=== PATIENT | female | born 1965 | race Hispanic/Latino ===

== ENCOUNTER 2017-09-08 09:50 | Emergency (ER) | payer MEDICARE ==
[~2017-09-08 09:50] MED LIST: CARV12.511 PO; DICY20TA11 PO; LOSA100T29 PO; PANT40TA PO; QUET200T58 PO; TRAZ-187 PO; VENL-63 PO
[2017-09-08] MEDS ORDERED: DICYCLOMINE HCL 20 MG TAB ONE (10:45)
[2017-09-08 10:54] LABS: BASOPHILS % (AUTO) 0.5 % (0.0-5.0); EOSINOPHILS % (AUTO) 1.7 % (0.0-8.0); HEMATOCRIT 39.8 % (36-48); LYMPHOCYTES % (AUTO) 29.6 % (21.0-51.0); MEAN CORPUSCULAR HEMOGLOBIN 30.7 pg (27.0-33.0); MEAN CORPUSCULAR HGB CONC 33.6 g/dL (32.0-36.0); MEAN CORPUSCULAR VOLUME 91.3 fL (79-99); MONOCYTES % (AUTO) 8.5 % (3.0-13.0); NEUTROPHILS % (AUTO) 59.7 % (40.0-77.0); PLATELET COUNT (AUTO) 177 K/uL (130-400); RED BLOOD CELL COUNT(AUTO) 4.36 MIL/uL (4.00-5.50); RED CELL DISTRIBUTION WIDTH 13.2 % (11.0-15.5); WHITE BLOOD COUNT (AUTO) 6.4 K/uL (4.8-10.8)
[2017-09-08] MEDS ORDERED: BENZONATATE 100 MG CAPSULE PO ONE (11:12)
[2017-09-08 11:20] LABS: AMYLASE 62 U/L (25-115); LIPASE 117 U/L (114-286)
[2017-09-08 11:47] LABS: APPEARANCE,URINE Clear (CLEAR); BILIRUBIN,URINE Negative (NEGATIVE); COLOR,URINE Yellow (YELLOW); GLUCOSE, URINE (UA) Negative (NEGATIVE); KETONES,URINE Negative (NEGATIVE); LEUKOCYTE ESTERASE ,URINE Negative (NEGATIVE); NITRATE,URINE Negative (NEGATIVE); OCCULT BLOOD,URINE Negative (NEGATIVE); PH,URINE 6.5 (5.0-8.0); PROTEIN,URINE Negative (NEGATIVE)
[2017-09-08] MEDS ORDERED: KETOROLAC TROMETHAMINE 15MG/ML ONE (12:08)
[2017-09-08 12:16] LABS: CREATININE 0.9 mg/dL (0.5-1.5); POTASSIUM 4.5 mmol/L (3.5-5.1)
[2017-09-08 12:20] LABS: ALBUMIN 3.2 g/dL (3.5-5.0); BILIRUBIN,TOTAL 0.2 mg/dL (0.2-1.0); TOTAL PROTEIN, SERUM 7.4 g/dL (6.0-8.3)
== END 2017-09-08 12:40 | disposition home or self-care (01) ==
LOC: EDH 09:50
DX: R10.9 Unspecified abdominal pain (principal); K59.00 Constipation, unspecified; K62.5 Hemorrhage of anus and rectum; M54.5 Low back pain; G89.29 Other chronic pain; M06.9 Rheumatoid arthritis, unspecified; R94.5 Abnormal results of liver function studies; F31.9 Bipolar disorder, unspecified; I10 Essential (primary) hypertension; Z98.890 Other specified postprocedural states; Z72.0 Tobacco use
CPT/HCPCS: 36415; 74018; 80053; 81003; 82150; 82550; 83690; 84484; 85025; 96374; 99285; J1885

== ENCOUNTER 2017-11-11 22:22 | Emergency (ER) | payer MEDICARE ==
[2017-11-11] MEDS ORDERED: LIDOCAINE HCL 2% VISCOUS 15 ML UDCUP ONE (23:07)
[2017-11-11] MEDS ORDERED: SUCRALFATE 1 GM TABLET ONE (23:08)
[2017-11-11] MEDS ORDERED: HYDROCORTISONE 25 MG SUPPOSITORY PR ONE (23:09)
== END 2017-11-12 01:09 | disposition home or self-care (01) ==
LOC: EDH 22:22
DX: K62.5 Hemorrhage of anus and rectum (principal); K21.0 Gastro-esophageal reflux disease with esophagitis; I10 Essential (primary) hypertension; F31.9 Bipolar disorder, unspecified; M54.9 Dorsalgia, unspecified; G89.29 Other chronic pain; Z72.0 Tobacco use

== ENCOUNTER 2018-02-04 10:20 | Emergency (ER) | payer MEDICARE ==
[~2018-02-04 10:20] MED LIST changes: +LOSA100T20 PO; -LOSA100T29 PO
[2018-02-04] MEDS ORDERED: ONDANSETRON HCL 4 MG/2 ML VIAL ONE ×2 (10:35→12:24)
[2018-02-04 10:58] LABS: BASOPHILS % (AUTO) 0.4 % (0.0-5.0); EOSINOPHILS % (AUTO) 1.9 % (0.0-8.0); HEMATOCRIT 35.1 % (36-48); MEAN CORPUSCULAR HEMOGLOBIN 31.7 pg (27.0-33.0); MEAN CORPUSCULAR HGB CONC 33.8 g/dL (32.0-36.0); MEAN CORPUSCULAR VOLUME 93.6 fL (79-99); MONOCYTES % (AUTO) 5.6 % (3.0-13.0); NEUTROPHILS % (AUTO) 59.1 % (40.0-77.0); PLATELET COUNT (AUTO) 182 K/uL (130-400); RED BLOOD CELL COUNT(AUTO) 3.75 MIL/uL (4.00-5.50); WHITE BLOOD COUNT (AUTO) 11.7 K/uL (4.8-10.8)
[2018-02-04 11:06] LABS: CREATININE 1.1 mg/dL (0.5-1.5); POTASSIUM 3.5 mmol/L (3.5-5.1)
[2018-02-04 11:11] LABS: ALBUMIN 3.4 g/dL (3.5-5.0); BILIRUBIN,TOTAL 0.7 mg/dL (0.2-1.0); TOTAL PROTEIN, SERUM 7.7 g/dL (6.0-8.3)
[2018-02-04] MEDS ORDERED: ACETAMINOPHEN-CODEINE 300/30MG TAB ONE (11:16)
[2018-02-04] MEDS ORDERED: PROMETHAZINE HCL 25 MG/ML 1ML AMPULE IM ONE (11:19)
[2018-02-04 11:44] LABS: APPEARANCE,URINE Turbid (CLEAR); BILIRUBIN,URINE Moderate (NEGATIVE); COLOR,URINE Dark Yellow (YELLOW); GLUCOSE, URINE (UA) Negative (NEGATIVE); KETONES,URINE Trace mg/dL (NEGATIVE); LEUKOCYTE ESTERASE ,URINE Small (NEGATIVE); NITRATE,URINE Positive (NEGATIVE); OCCULT BLOOD,URINE Negative (NEGATIVE); PH,URINE 5.5 (5.0-8.0); PROTEIN,URINE POS 1+ (NEGATIVE)
[2018-02-04 11:58] LABS: BACTERIA,URINE Few /HPF (None Seen); MUCUS,URINE Moderate LPF (None Seen); RBC,URINE 0-1 /HPF (0-1); SQUAMOUS EPITHELIAL CELL,UR Moderate /HPF (0-2)
[2018-02-04 11:59] LABS: CALCIUM OXALATE CRYSTALS,UR Moderate /LPF (None Seen)
[2018-02-04] MEDS ORDERED: CEFTRIAXONE SODIUM 1 GM ONE (12:24)
[2018-02-04] MEDS ORDERED: SODIUM CHLORIDE 0.9% 200 ML IV ONE (12:25)
== END 2018-02-04 13:52 | disposition home or self-care (01) ==
LOC: EDH 10:20
DX: A09 Infectious gastroenteritis and colitis, unspecified (principal); N39.0 Urinary tract infection, site not specified; E86.9 Volume depletion, unspecified; F41.9 Anxiety disorder, unspecified; F31.9 Bipolar disorder, unspecified; I10 Essential (primary) hypertension; M06.9 Rheumatoid arthritis, unspecified; Z72.0 Tobacco use
CPT/HCPCS: 36415; 71046; 80053; 81001; 85025; 87804 ×2; 96361; 96365; 96372; 96374; 96375; 99285; J0696; J2405 ×2; J2550

== ENCOUNTER 2018-02-24 12:31 | Emergency (ER) | payer MEDICARE ==
[2018-02-24] MEDS ORDERED: SODIUM CHLORIDE 0.9% 1000ML 1,000 ML IV ONE (12:57)
[2018-02-24] MEDS ORDERED: ONDANSETRON HCL 4 MG/2 ML VIAL ONE (12:57)
[2018-02-24] MEDS ORDERED: KETOROLAC TROMETHAMINE 30MG/ML ONE (12:57)
[2018-02-24 13:14] LABS: BASOPHILS % (AUTO) 0.3 % (0.0-5.0); EOSINOPHILS % (AUTO) 1.8 % (0.0-8.0); HEMATOCRIT 35.9 % (36-48); LYMPHOCYTES % (AUTO) 30.4 % (21.0-51.0); MEAN CORPUSCULAR HEMOGLOBIN 32.1 pg (27.0-33.0); MEAN CORPUSCULAR HGB CONC 33.8 g/dL (32.0-36.0); MEAN CORPUSCULAR VOLUME 95.1 fL (79-99); MONOCYTES % (AUTO) 9.4 % (3.0-13.0); NEUTROPHILS % (AUTO) 58.1 % (40.0-77.0); PLATELET COUNT (AUTO) 209 K/uL (130-400); RED BLOOD CELL COUNT(AUTO) 3.77 MIL/uL (4.00-5.50); WHITE BLOOD COUNT (AUTO) 7.9 K/uL (4.8-10.8)
[2018-02-24 13:22] LABS: CREATININE 0.9 mg/dL (0.5-1.5); POTASSIUM 4.7 mmol/L (3.5-5.1)
[2018-02-24 13:28] LABS: ALBUMIN 3.2 g/dL (3.5-5.0); BILIRUBIN,DIRECT 0.1 mg/dL (0.0-0.3); BILIRUBIN,TOTAL 0.4 mg/dL (0.2-1.0); TOTAL PROTEIN, SERUM 7.7 g/dL (6.0-8.3)
[2018-02-24 15:59] LABS: APPEARANCE,URINE Clear (CLEAR); BILIRUBIN,URINE Negative (NEGATIVE); COLOR,URINE Dark Yellow (YELLOW); GLUCOSE, URINE (UA) Negative (NEGATIVE); KETONES,URINE Trace mg/dL (NEGATIVE); LEUKOCYTE ESTERASE ,URINE Trace (NEGATIVE); NITRATE,URINE Negative (NEGATIVE); OCCULT BLOOD,URINE Negative (NEGATIVE); PH,URINE 5.5 (5.0-8.0); PROTEIN,URINE Negative (NEGATIVE)
[2018-02-24 16:11] LABS: MUCUS,URINE Many LPF (None Seen)
[2018-02-24 16:12] LABS: BACTERIA,URINE Few /HPF (None Seen); RBC,URINE 0-1 /HPF (0-1); SQUAMOUS EPITHELIAL CELL,UR 30-50 /HPF (0-2)
[2018-02-24 20:17] LABS: AMPHET/METH SCREEN,URINE NEGATIVE (NEGATIVE); BARBITURATE SCREEN, URINE NEGATIVE (NEGATIVE); BENZODIAZEPINES SCREEN,URINE NEGATIVE (NEGATIVE); CANNABINOID SCREEN,URINE POSITIVE (NEGATIVE); COCAINE SCREEN,URINE POSITIVE (NEGATIVE); OPIATE SCREEN,URINE NEGATIVE (NEGATIVE); PHENCYCLIDINE SCREEN,URINE NEGATIVE (NEGATIVE)
== END 2018-02-24 16:48 | disposition home or self-care (01) ==
LOC: EDH 12:31
DX: R10.31 Right lower quadrant pain (principal); Z72.0 Tobacco use
CPT/HCPCS: 36415; 74176; 80048; 80076; 80305; 81001; 83690; 85025; 96374; 96375; 99285; J1885; J2405; J7030

== ENCOUNTER 2018-06-11 13:25 | Emergency (ER) | payer MEDICARE ==
[~2018-06-11 13:25] MED LIST changes: -LOSA100T20 PO; +LOSA100T58 PO
[2018-06-11] MEDS ORDERED: METHYLPREDNISOLONE SOD SUCC 125MG/2ML VIAL ONE (14:47)
[2018-06-11] MEDS ORDERED: ONDANSETRON HCL 4 MG/2 ML VIAL ONE (14:47)
[2018-06-11] MEDS ORDERED: IPRATROPIUM/ALBUTEROL SULFATE 3 ML SOLUTION IH ONE (15:04)
[2018-06-11 15:05] LABS: BASOPHILS % (AUTO) 0.7 % (0.0-5.0); EOSINOPHILS % (AUTO) 1.9 % (0.0-8.0); HEMATOCRIT 37.3 % (36-48); LYMPHOCYTES % (AUTO) 19.4 % (21.0-51.0); MEAN CORPUSCULAR HEMOGLOBIN 29.6 pg (27.0-33.0); MEAN CORPUSCULAR HGB CONC 33.4 g/dL (32.0-36.0); MEAN CORPUSCULAR VOLUME 88.7 fL (79-99); MONOCYTES % (AUTO) 10.8 % (3.0-13.0); NEUTROPHILS % (AUTO) 67.2 % (40.0-77.0); PLATELET COUNT (AUTO) 186 K/uL (130-400); RED BLOOD CELL COUNT(AUTO) 4.21 MIL/uL (4.00-5.50); RED CELL DISTRIBUTION WIDTH 13.4 % (11.0-15.5); WHITE BLOOD COUNT (AUTO) 7.8 K/uL (4.8-10.8)
[2018-06-11 15:08] LABS: APPEARANCE,URINE Clear (CLEAR); BILIRUBIN,URINE Negative (NEGATIVE); COLOR,URINE Yellow (YELLOW); GLUCOSE, URINE (UA) Negative (NEGATIVE); KETONES,URINE Trace mg/dL (NEGATIVE); LEUKOCYTE ESTERASE ,URINE Trace (NEGATIVE); NITRATE,URINE Negative (NEGATIVE); OCCULT BLOOD,URINE Negative (NEGATIVE); PH,URINE 6.5 (5.0-8.0); PROTEIN,URINE Negative (NEGATIVE)
[2018-06-11 15:14] LABS: BACTERIA,URINE Rare /HPF (None Seen); RBC,URINE 0-1 /HPF (0-1)
[2018-06-11 15:15] LABS: MUCUS,URINE Few LPF (None Seen); SQUAMOUS EPITHELIAL CELL,UR Few /HPF (0-2)
[2018-06-11 15:25] LABS: ALBUMIN 3.1 g/dL (3.5-5.0); BILIRUBIN,DIRECT 0.1 mg/dL (0.0-0.3); BILIRUBIN,TOTAL 0.4 mg/dL (0.2-1.0); TOTAL PROTEIN, SERUM 7.1 g/dL (6.0-8.3)
[2018-06-11 15:32] LABS: RAPID GROUP A STREP NEGATIVE (NEGATIVE)
[2018-06-11] MEDS ORDERED: OSELTAMIVIR PHOSPHATE 75 MG CAP ONE (15:48)
== END 2018-06-11 15:54 | disposition home or self-care (01) ==
LOC: EDH 13:25
DX: J10.1 Influenza due to other identified influenza virus with other respiratory manifestations (principal); J20.8 Acute bronchitis due to other specified organisms; M19.90 Unspecified osteoarthritis, unspecified site; Z72.0 Tobacco use; Z98.890 Other specified postprocedural states
CPT/HCPCS: 36415; 71046; 80048; 80076; 81001; 83690; 85025; 87804 ×2; 87880; 94640; 96374; 96375; 99284; J2405; J2930

== ENCOUNTER 2018-10-06 19:28 | Emergency (ER) | payer MEDICARE ==
[2018-10-06] MEDS ORDERED: ASPIRIN 325 MG TABLET ONE (19:37)
[2018-10-06 19:53] LABS: APPEARANCE,URINE Clear (CLEAR); BILIRUBIN,URINE Negative (NEGATIVE); COLOR,URINE Yellow (YELLOW); GLUCOSE, URINE (UA) Negative (NEGATIVE); KETONES,URINE Negative (NEGATIVE); LEUKOCYTE ESTERASE ,URINE Negative (NEGATIVE); NITRATE,URINE Negative (NEGATIVE); OCCULT BLOOD,URINE Negative (NEGATIVE); PROTEIN,URINE Negative (NEGATIVE)
[2018-10-06 19:56] LABS: BASOPHILS % (AUTO) 0.9 % (0.0-5.0); EOSINOPHILS % (AUTO) 1.9 % (0.0-8.0); LYMPHOCYTES % (AUTO) 29.2 % (21.0-51.0); MEAN CORPUSCULAR HEMOGLOBIN 31.3 pg (27.0-33.0); MEAN CORPUSCULAR HGB CONC 34.2 g/dL (32.0-36.0); MEAN CORPUSCULAR VOLUME 91.3 fL (79-99); PLATELET COUNT (AUTO) 192 K/uL (130-400); RED BLOOD CELL COUNT(AUTO) 4.28 MIL/uL (4.00-5.50); RED CELL DISTRIBUTION WIDTH 13.5 % (11.0-15.5); WHITE BLOOD COUNT (AUTO) 9.3 K/uL (4.8-10.8)
[2018-10-06 20:07] LABS: INR 0.94 (0.85-1.15); PARTIAL THROMBOPLASTIN TIME 27.8 SEC (26.3-35.5); PROTHROMBIN TIME 9.9 SEC (9.6-11.6)
[2018-10-06 20:19] LABS: ALBUMIN 3.2 g/dL (3.5-5.0); BILIRUBIN,TOTAL 0.3 mg/dL (0.2-1.0); TOTAL PROTEIN, SERUM 7.1 g/dL (6.0-8.3)
[2018-10-06 20:20] LABS: B-TYPE NATRIURETIC PEPTIDE 51 pg/mL (0-100)
[2018-10-06] MEDS ORDERED: HYDROXYZINE HCL 25 MG TABLET ONE (20:42)
== END 2018-10-06 22:36 | disposition home or self-care (01) ==
LOC: EDH 19:28
DX: R07.89 Other chest pain (principal); J06.9 Acute upper respiratory infection, unspecified; R51 Headache; Z72.0 Tobacco use
CPT/HCPCS: 36415; 71045; 80053; 81003; 82550; 83874; 83880; 84484; 85025; 85610; 85730; 87804; 93005

== ENCOUNTER 2018-11-19 16:44 | Emergency (ER) | payer MEDICARE ==
[2018-11-19] MEDS ORDERED: ASPIRIN 325 MG TABLET ONE (17:05)
[2018-11-19] MEDS ORDERED: SODIUM CHLORIDE 0.9% 1000ML 1,000 ML IV ONE (17:06)
[2018-11-19 17:40] LABS: BASOPHILS % (AUTO) 0.6 % (0.0-5.0); EOSINOPHILS % (AUTO) 1.6 % (0.0-8.0); LYMPHOCYTES % (AUTO) 23.6 % (21.0-51.0); MEAN CORPUSCULAR HEMOGLOBIN 30.3 pg (27.0-33.0); MEAN CORPUSCULAR VOLUME 91.8 fL (79-99); MONOCYTES % (AUTO) 7.4 % (3.0-13.0); NEUTROPHILS % (AUTO) 66.8 % (40.0-77.0); NUCLEATED RED BLOOD CELLS 0.1 % (0.0-0.19); PLATELET COUNT (AUTO) 186 K/uL (130-400); RED BLOOD CELL COUNT(AUTO) 4.25 MIL/uL (4.00-5.50); RED CELL DISTRIBUTION WIDTH 13.7 % (11.0-15.5); WHITE BLOOD COUNT (AUTO) 11.2 K/uL (4.8-10.8)
[2018-11-19 17:52] LABS: INR 0.94 (0.85-1.15); PARTIAL THROMBOPLASTIN TIME 25.5 SEC (26.3-35.5); POTASSIUM 3.4 mmol/L (3.5-5.1); PROTHROMBIN TIME 9.9 SEC (9.6-11.6)
[2018-11-19 17:56] LABS: BILIRUBIN,TOTAL 0.2 mg/dL (0.2-1.0)
[2018-11-19] MEDS ORDERED: ACETAMINOPHEN 325 MG TAB ONE (17:56)
== END 2018-11-19 19:36 | disposition home or self-care (01) ==
LOC: EDH 16:44
DX: R00.2 Palpitations (principal); R07.89 Other chest pain; I10 Essential (primary) hypertension; T39.4X5A Adverse effect of antirheumatics, not elsewhere classified, initial encounter; M19.90 Unspecified osteoarthritis, unspecified site; F41.9 Anxiety disorder, unspecified; F32.9 Major depressive disorder, single episode, unspecified; Z72.0 Tobacco use; Y92.89 Other specified places as the place of occurrence of the external cause
CPT/HCPCS: 36415; 70450; 71045; 80053; 82550; 84484; 85025; 85610; 85730; 93005; 99285; J7030

== ENCOUNTER → 2019-02-19 | Outpatient (CLI) | payer MEDICARE ==
[~2019-02-19] MED LIST changes: +QUET200T29 PO; -QUET200T58 PO
== END | disposition home or self-care (01) ==
LOC: RAH 07:41
PROVIDERS: ATTEND Internal Medicine
DX: M47.27 Other spondylosis with radiculopathy, lumbosacral region (principal); M48.07 Spinal stenosis, lumbosacral region; M05.79 Rheumatoid arthritis with rheumatoid factor of multiple sites without organ or systems involvement; G89.11 Acute pain due to trauma; N28.1 Cyst of kidney, acquired
CPT/HCPCS: 72148

== ENCOUNTER 2019-02-27 13:35 | Emergency (ER) | payer MEDICARE ==
[2019-02-27 14:03] LABS: APPEARANCE,URINE Clear (CLEAR); BILIRUBIN,URINE Negative (NEGATIVE); COLOR,URINE Yellow (YELLOW); GLUCOSE, URINE (UA) Negative (NEGATIVE); KETONES,URINE Trace mg/dL (NEGATIVE); LEUKOCYTE ESTERASE ,URINE Negative (NEGATIVE); NITRATE,URINE Negative (NEGATIVE); OCCULT BLOOD,URINE Negative (NEGATIVE); PH,URINE 6.5 (5.0-8.0); PROTEIN,URINE Negative (NEGATIVE)
[2019-02-27 14:10] LABS: AMPHET/METH SCREEN,URINE NEGATIVE (NEGATIVE); BARBITURATE SCREEN, URINE NEGATIVE (NEGATIVE); BENZODIAZEPINES SCREEN,URINE NEGATIVE (NEGATIVE); CANNABINOID SCREEN,URINE NEGATIVE (NEGATIVE); COCAINE SCREEN,URINE NEGATIVE (NEGATIVE); OPIATE SCREEN,URINE NEGATIVE (NEGATIVE); PHENCYCLIDINE SCREEN,URINE NEGATIVE (NEGATIVE)
[2019-02-27] MEDS ORDERED: ONDANSETRON HCL 4 MG/2 ML VIAL ONE (14:12)
[2019-02-27 14:17] LABS: BACTERIA,URINE Few /HPF (None Seen)
[2019-02-27 14:18] LABS: BASOPHILS % (AUTO) 0.9 % (0.0-5.0); EOSINOPHILS % (AUTO) 1.7 % (0.0-8.0); HEMATOCRIT 40.2 % (36-48); LYMPHOCYTES % (AUTO) 30.2 % (21.0-51.0); MEAN CORPUSCULAR HGB CONC 34.1 g/dL (32.0-36.0); MEAN CORPUSCULAR VOLUME 90.9 fL (79-99); MONOCYTES % (AUTO) 7.4 % (3.0-13.0); NEUTROPHILS % (AUTO) 59.8 % (40.0-77.0); PLATELET COUNT (AUTO) 189 K/uL (130-400); RED BLOOD CELL COUNT(AUTO) 4.42 MIL/uL (4.00-5.50); RED CELL DISTRIBUTION WIDTH 12.8 % (11.0-15.5); WHITE BLOOD COUNT (AUTO) 10.8 K/uL (4.8-10.8)
[2019-02-27 14:18] LABS: MUCUS,URINE Moderate LPF (None Seen)
[2019-02-27 14:31] LABS: INR 0.95 (0.85-1.15); PARTIAL THROMBOPLASTIN TIME 26.1 SEC (26.3-35.5); POTASSIUM 3.6 mmol/L (3.5-5.1)
[2019-02-27 14:35] LABS: ALBUMIN 3.1 g/dL (3.5-5.0); BILIRUBIN,TOTAL 0.3 mg/dL (0.2-1.0); TOTAL PROTEIN, SERUM 7.1 g/dL (6.0-8.3)
[2019-02-27] MEDS ORDERED: NAPROXEN 250 MG TAB ONE (16:20)
== END 2019-02-27 16:31 | disposition home or self-care (01) ==
LOC: EDH 13:35
DX: A09 Infectious gastroenteritis and colitis, unspecified (principal); M54.5 Low back pain; I10 Essential (primary) hypertension; F32.9 Major depressive disorder, single episode, unspecified; F41.9 Anxiety disorder, unspecified; M19.90 Unspecified osteoarthritis, unspecified site; Z98.890 Other specified postprocedural states; Z72.0 Tobacco use
CPT/HCPCS: 36415; 80053; 80305; 81001; 81025; 82150; 82550; 83690; 84484; 85025; 85610; 85730; 93005; 96374; 99285; J2405

== ENCOUNTER 2019-04-11 13:15 | Emergency (ER) | payer MEDICARE ==
[2019-04-11 13:47] LABS: BASOPHILS % (AUTO) 0.7 % (0.0-5.0); EOSINOPHILS % (AUTO) 0.3 % (0.0-8.0); HEMATOCRIT 41.1 % (36-48); MEAN CORPUSCULAR HEMOGLOBIN 31.7 pg (27.0-33.0); MEAN CORPUSCULAR HGB CONC 33.9 g/dL (32.0-36.0); MEAN CORPUSCULAR VOLUME 93.4 fL (79-99); MONOCYTES % (AUTO) 7.8 % (3.0-13.0); NEUTROPHILS % (AUTO) 70.2 % (40.0-77.0); NUCLEATED RED BLOOD CELLS 0.1 % (0.0-0.19); PLATELET COUNT (AUTO) 201 K/uL (130-400); RED BLOOD CELL COUNT(AUTO) 4.41 MIL/uL (4.00-5.50); RED CELL DISTRIBUTION WIDTH 12.8 % (11.0-15.5); WHITE BLOOD COUNT (AUTO) 11.2 K/uL (4.8-10.8)
[2019-04-11 13:52] LABS: POTASSIUM 3.8 mmol/L (3.5-5.1)
[2019-04-11 13:53] LABS: INR 0.96 (0.85-1.15); PARTIAL THROMBOPLASTIN TIME 28.3 SEC (26.3-35.5); PROTHROMBIN TIME 10.1 SEC (9.6-11.6)
[2019-04-11 13:58] LABS: ALBUMIN 3.4 g/dL (3.5-5.0); BILIRUBIN,TOTAL 0.4 mg/dL (0.2-1.0)
[2019-04-11 14:08] LABS: APPEARANCE,URINE SL CLOUDY (CLEAR); BILIRUBIN,URINE SMALL (NEGATIVE); COLOR,URINE YELLOW (YELLOW); GLUCOSE, URINE (UA) NEGATIVE (NEGATIVE); KETONES,URINE 5 mg/dL (NEGATIVE); LEUKOCYTE ESTERASE ,URINE NEGATIVE (NEGATIVE); NITRATE,URINE NEGATIVE (NEGATIVE); OCCULT BLOOD,URINE TRACE-LYSED (NEGATIVE); PROTEIN,URINE 30 mg/dL (NEGATIVE)
[2019-04-11] MEDS ORDERED: ONDANSETRON HCL 4 MG/2 ML VIAL ONE (14:10)
[2019-04-11 14:21] LABS: HCG,QUAL RESULT NEGATIVE (NEGATIVE)
[2019-04-11 14:24] LABS: BACTERIA,URINE Few /HPF (None Seen); MUCUS,URINE Moderate LPF (None Seen)
[2019-04-11] MEDS ORDERED: GUAIFENESIN-DM 200/20 MG 10 ML ONE (14:27)
[2019-04-11 14:34] LABS: AMPHET/METH SCREEN,URINE NEGATIVE (NEGATIVE); BARBITURATE SCREEN, URINE NEGATIVE (NEGATIVE); BENZODIAZEPINES SCREEN,URINE NEGATIVE (NEGATIVE); CANNABINOID SCREEN,URINE NEGATIVE (NEGATIVE); COCAINE SCREEN,URINE NEGATIVE (NEGATIVE); OPIATE SCREEN,URINE NEGATIVE (NEGATIVE); PHENCYCLIDINE SCREEN,URINE NEGATIVE (NEGATIVE)
== END 2019-04-11 15:02 | disposition home or self-care (01) ==
LOC: EDH 13:15
DX: J20.9 Acute bronchitis, unspecified (principal); R11.0 Nausea; F41.9 Anxiety disorder, unspecified; F31.9 Bipolar disorder, unspecified; I10 Essential (primary) hypertension; M06.9 Rheumatoid arthritis, unspecified; I20.9 Angina pectoris, unspecified; Z98.890 Other specified postprocedural states; Z72.0 Tobacco use
CPT/HCPCS: 36415; 71045; 80053; 80305; 81001; 81025; 82550; 84484; 85025; 85610; 85730; 87804 ×2; 87880; 93005; 96374; 99285; J2405

== ENCOUNTER 2019-08-03 17:58 | Emergency (ER) | payer MEDICARE ==
[~2019-08-03 17:58] MED LIST changes: +AMLO10TA7 PO; +AZIT250T9 PO; +BENZ-51 PO; +BUDE10.2 IH; +CLON1TAB12 PO; +HYDR-4068 PO; +IPRAHFA IH; +LACT10SO PO; +LISI1TAB29 PO; -LOSA100T58 PO; +OMEP20CA12 PO; +ORPH-43 PO; -PANT40TA PO; +ZOLP10TA6 PO
[2019-08-03 18:44] LABS: BASOPHILS % (AUTO) 0.4 % (0.0-5.0); EOSINOPHILS % (AUTO) 0.3 % (0.0-8.0); HEMATOCRIT 43.2 % (36-48); LYMPHOCYTES % (AUTO) 10.9 % (21.0-51.0); MEAN CORPUSCULAR HGB CONC 32.2 g/dL (32.0-36.0); MEAN CORPUSCULAR VOLUME 93.1 fL (79-99); MONOCYTES % (AUTO) 4.4 % (3.0-13.0); NEUTROPHILS % (AUTO) 83.6 % (40.0-77.0); PLATELET COUNT (AUTO) 250 K/uL (130-400); RED BLOOD CELL COUNT(AUTO) 4.64 MIL/uL (4.00-5.50); RED CELL DISTRIBUTION WIDTH 13.1 % (11.0-15.5); WHITE BLOOD COUNT (AUTO) 15.8 K/uL (4.8-10.8)
[2019-08-03 18:55] LABS: CREATININE 1.3 mg/dL (0.5-1.5)
[2019-08-03 19:00] LABS: ALBUMIN 3.4 g/dL (3.5-5.0); BILIRUBIN,TOTAL 0.5 mg/dL (0.2-1.0); TOTAL PROTEIN, SERUM 8.6 g/dL (6.0-8.3)
[2019-08-03] MEDS ORDERED: AMOXICILLIN/POTASSIUM CLAV 875-125 TABLET PO ONE (19:35)
== END 2019-08-03 19:49 | disposition home or self-care (01) ==
LOC: EDH 17:58
DX: J02.9 Acute pharyngitis, unspecified (principal); F41.9 Anxiety disorder, unspecified; F31.9 Bipolar disorder, unspecified; M06.9 Rheumatoid arthritis, unspecified
CPT/HCPCS: 36415; 71045; 80053; 82150; 82550; 83690; 84484; 85025; 87804; 93005

== ENCOUNTER 2020-02-07 10:38 | Emergency (ER) | payer MEDICARE ==
[2020-02-07] MEDS ORDERED: ONDANSETRON HCL 4 MG/2 ML VIAL ONE (10:45)
[2020-02-07] MEDS ORDERED: MORPHINE SULFATE 4 MG/1ML SYG ONE (11:22)
[2020-02-07 11:31] LABS: BASOPHILS % (AUTO) 0.5 % (0.0-5.0); EOSINOPHILS % (AUTO) 1.8 % (0.0-8.0); HEMATOCRIT 41.1 % (36-48); MEAN CORPUSCULAR HEMOGLOBIN 30.4 pg (27.0-33.0); MEAN CORPUSCULAR HGB CONC 32.8 g/dL (32.0-36.0); MEAN CORPUSCULAR VOLUME 92.6 fL (79-99); MONOCYTES % (AUTO) 6.2 % (3.0-13.0); NEUTROPHILS % (AUTO) 66.3 % (40.0-77.0); PLATELET COUNT (AUTO) 188 K/uL (130-400); RED BLOOD CELL COUNT(AUTO) 4.44 MIL/uL (4.00-5.50); RED CELL DISTRIBUTION WIDTH 12.1 % (11.0-15.5); WHITE BLOOD COUNT (AUTO) 9.4 K/uL (4.8-10.8)
[2020-02-07 12:04] LABS: INR 0.93 (0.85-1.15); PARTIAL THROMBOPLASTIN TIME 23.4 SEC (26.3-35.5); PROTHROMBIN TIME 10.1 SEC (9.6-11.6)
[2020-02-07 12:34] LABS: ALBUMIN 3.3 g/dL (3.5-5.0); BILIRUBIN,TOTAL 0.6 mg/dL (0.2-1.0); CREATININE 1.1 mg/dL (0.5-1.5); POTASSIUM 3.7 mmol/L (3.5-5.1); TOTAL PROTEIN, SERUM 7.3 g/dL (6.0-8.3)
[2020-02-07 12:58] LABS: APPEARANCE,URINE Cloudy (CLEAR); BILIRUBIN,URINE Small (NEGATIVE); COLOR,URINE Dark Yellow (YELLOW); GLUCOSE, URINE (UA) Negative (NEGATIVE); KETONES,URINE Negative (NEGATIVE); LEUKOCYTE ESTERASE ,URINE Trace (NEGATIVE); NITRATE,URINE Negative (NEGATIVE); OCCULT BLOOD,URINE Negative (NEGATIVE); PROTEIN,URINE Trace mg/dL (NEGATIVE)
[2020-02-07 13:07] LABS: BACTERIA,URINE Rare /HPF (None Seen); RBC,URINE 0-1 /HPF (0-1); WBC,URINE 0-1 /HPF (0-1)
[2020-02-07 13:08] LABS: MUCUS,URINE Many LPF (None Seen); SQUAMOUS EPITHELIAL CELL,UR Few /HPF (0-2)
== END 2020-02-07 13:45 | disposition home or self-care (01) ==
LOC: EDH 10:38
DX: R10.9 Unspecified abdominal pain (principal); F32.9 Major depressive disorder, single episode, unspecified; F41.9 Anxiety disorder, unspecified; M06.9 Rheumatoid arthritis, unspecified; I10 Essential (primary) hypertension; Z72.0 Tobacco use
CPT/HCPCS: 36415; 71045; 74176; 80053; 81001; 82150; 82550; 83690; 84484; 85025; 85610; 85730; 93005; 96374; 96375; 99285; J2270; J2405

== ENCOUNTER → 2020-02-23 | Outpatient (CLI) | payer MEDICARE ==
[~2020-02-23] MED LIST changes: +AMLO-258 PO; -AMLO10TA7 PO
== END | disposition home or self-care (01) ==
LOC: RAH 09:05
PROVIDERS: ATTEND Internal Medicine Gastroenterology
DX: K76.0 Fatty (change of) liver, not elsewhere classified (principal); K29.70 Gastritis, unspecified, without bleeding
CPT/HCPCS: 76700

== ENCOUNTER 2020-02-24 11:14 | Emergency (ER) | payer MEDICARE ==
[2020-02-24] MEDS ORDERED: LIDOCAINE HCL 1% 20 ML VIAL ONE (11:41)
[2020-02-24] MEDS ORDERED: ACETAMINOPHEN EXTRA STRENGTH 500 MG TABLET ONE (11:42)
== END 2020-02-24 12:36 | disposition home or self-care (01) ==
LOC: EDH 11:14
DX: L02.214 Cutaneous abscess of groin (principal); F31.9 Bipolar disorder, unspecified; J44.9 Chronic obstructive pulmonary disease, unspecified; I10 Essential (primary) hypertension; M19.90 Unspecified osteoarthritis, unspecified site; F41.9 Anxiety disorder, unspecified; M06.9 Rheumatoid arthritis, unspecified; Z72.0 Tobacco use; Z98.890 Other specified postprocedural states
CPT/HCPCS: 10060; 87070; 87076

== ENCOUNTER 2020-03-27 14:52 | Emergency (ER) | payer MEDICARE ==
[2020-03-27] MEDS ORDERED: KETOROLAC TROMETHAMINE 30MG/ML ONE (15:30)
== END 2020-03-27 15:50 | disposition home or self-care (01) ==
LOC: EDH 14:52
DX: T16.1XXA Foreign body in right ear, initial encounter (principal); J44.9 Chronic obstructive pulmonary disease, unspecified; F31.9 Bipolar disorder, unspecified; F41.9 Anxiety disorder, unspecified; Z88.0 Allergy status to penicillin; M06.9 Rheumatoid arthritis, unspecified; Z79.899 Other long term (current) drug therapy; Z88.8 Allergy status to other drugs, medicaments and biological substances; Z86.73 Personal history of transient ischemic attack (TIA), and cerebral infarction without residual deficits; X58.XXXA Exposure to other specified factors, initial encounter; Y93.89 Activity, other specified; Y92.89 Other specified places as the place of occurrence of the external cause; Y99.8 Other external cause status
CPT/HCPCS: 96372; 99284; J1885

== ENCOUNTER → 2020-06-01 | Outpatient (CLI) | payer MEDICARE, OTHER | END | disposition home or self-care (01) | LOC: OIH 15:37 | PROVIDERS: ATTEND Internal Medicine | DX: M16.0 Bilateral primary osteoarthritis of hip (principal); M19.042 Primary osteoarthritis, left hand; M19.041 Primary osteoarthritis, right hand; M51.36 Other intervertebral disc degeneration, lumbar region; M19.072 Primary osteoarthritis, left ankle and foot; M20.11 Hallux valgus (acquired), right foot; M17.0 Bilateral primary osteoarthritis of knee; M25.762 Osteophyte, left knee | CPT/HCPCS: 72100; 73521; 73630 ==

== ENCOUNTER 2021-02-07 07:31 | Inpatient (IN) | payer OTHER ==
[2021-02-06 14:40] LABS: BASOPHILS % (AUTO) 0.6 % (0.0-5.0); EOSINOPHILS % (AUTO) 1.9 % (0.0-8.0); HEMATOCRIT 46.6 % (36-48); LYMPHOCYTES % (AUTO) 27.6 % (21.0-51.0); MEAN CORPUSCULAR HEMOGLOBIN 32.1 pg (27.0-33.0); MEAN CORPUSCULAR HGB CONC 32.4 g/dL (32.0-36.0); MEAN CORPUSCULAR VOLUME 99.1 fL (79-99); MONOCYTES % (AUTO) 6.6 % (3.0-13.0); PLATELET COUNT (AUTO) 255 K/uL (130-400); RED CELL DISTRIBUTION WIDTH 12.5 % (11.0-15.5); WHITE BLOOD COUNT (AUTO) 10.7 K/uL (4.8-10.8)
[2021-02-06 14:50] LABS: CREATININE 1.2 mg/dL (0.5-1.5); POTASSIUM 4.2 mmol/L (3.5-5.1)
[2021-02-06 14:51] LABS: INR 1.04 (0.85-1.15); PROTHROMBIN TIME 11.3 SEC (9.6-11.6)
[2021-02-06 14:52] LABS: PARTIAL THROMBOPLASTIN TIME 32.2 SEC (26.3-35.5)
[2021-02-06 16:09] VITALS: BP 140/89
[~2021-02-07] VITALS: Ht 167.6 cm; Wt 94.4 kg
[~2021-02-07 07:31] MED LIST changes: +AMLO-257 PO; -AMLO-258 PO; -AZIT250T9 PO; -BENZ-51 PO; -BUDE10.2 IH; -CARV12.511 PO; +CARV6.25 PO; -CLON1TAB12 PO; -DICY20TA11 PO; -HYDR-4068 PO; -IPRAHFA IH; -LACT10SO PO; +LISI10TA24 PO; -LISI1TAB29 PO; -OMEP20CA12 PO; -ORPH-43 PO; -QUET200T29 PO; -TRAZ-187 PO; -VENL-63 PO; -ZOLP10TA6 PO
[2021-02-07 08:12] VITALS: BP 94/64
[2021-02-07] MEDS ORDERED: CEFAZOLIN SODIUM 1 GM VIAL ONE (08:33)
[2021-02-07] MEDS ORDERED: LACTATED RINGERS 1000ML 1,000 ML IV ONE (08:34)
[2021-02-07 10:32] LABS: APPEARANCE,URINE Cloudy (CLEAR); BILIRUBIN,URINE Negative (NEGATIVE); COLOR,URINE Dark Yellow (YELLOW); GLUCOSE, URINE (UA) Negative (NEGATIVE); KETONES,URINE Trace mg/dL (NEGATIVE); LEUKOCYTE ESTERASE ,URINE Small (NEGATIVE); NITRATE,URINE Negative (NEGATIVE); OCCULT BLOOD,URINE Negative (NEGATIVE); PH,URINE 5.5 (5.0-8.0); PROTEIN,URINE POS 1+ mg/dL (NEGATIVE)
[2021-02-07 10:50] LABS: BACTERIA,URINE Few /HPF (None Seen); HYALINE CASTS, URINE 0-1 /LPF (0-1 /LPF); RBC,URINE 0-1 /HPF (0-1)
[2021-02-07 11:12] LABS: HEMATOCRIT 38.8 % (36-48); MEAN CORPUSCULAR HEMOGLOBIN 32.2 pg (27.0-33.0); MEAN CORPUSCULAR VOLUME 97.7 fL (79-99); PLATELET COUNT (AUTO) 191 K/uL (130-400); RED BLOOD CELL COUNT(AUTO) 3.97 MIL/uL (4.00-5.50); RED CELL DISTRIBUTION WIDTH 12.5 % (11.0-15.5); WHITE BLOOD COUNT (AUTO) 8.9 K/uL (4.8-10.8)
[2021-02-07 11:24] LABS: INR 1.05 (0.85-1.15); PROTHROMBIN TIME 11.4 SEC (9.6-11.6)
[2021-02-07 11:26] LABS: PARTIAL THROMBOPLASTIN TIME 31.6 SEC (26.3-35.5)
[2021-02-07 11:31] LABS: BILIRUBIN,TOTAL 0.5 mg/dL (0.2-1.0); CREATININE 1.2 mg/dL (0.5-1.5); POTASSIUM 3.9 mmol/L (3.5-5.1); TOTAL PROTEIN, SERUM 6.9 g/dL (6.0-8.3)
[2021-02-07 11:39] LABS: EOSINOPHILS % (MANUAL) 1 % (1-6); LYMPHOCYTES % (MANUAL) 31 % (22-44); MAN.DIFF COMMENT-IMPRESSION MANUAL DIFFERENTIAL; MONOCYTES % (MANUAL) 10 % (2-9); PLATELET MORPHOLOGY COMMENT ADEQUATE; SEGMENTED NEUTROPHILS % 58 % (40-70)
[2021-02-07] MEDS ORDERED: DIATR MEGLU/DIATRIZOATE SODIUM 30 ML BOTTLE ONE (11:58)
[2021-02-07] MEDS ORDERED: ACETAMINOPHEN 325 MG TAB GT PRN (13:00)
[2021-02-07] MEDS ORDERED: ENOXAPARIN SODIUM 40 MG/0.4 ML SYRINGE SQ SCH (14:00)
[2021-02-07] MEDS: 0.9%NACL 1000ML 1,000 ML IV SCH (14:41)
[2021-02-07] MEDS: HYDROMORPHONE 1 MG INJ IVP PRN (14:42)
[2021-02-07] MEDS ORDERED: IOHEXOL 350 MG/ML 100ML INFUS..BTL IV ONE (15:28)
[2021-02-07 16:45] VITALS: BP 94/64
[2021-02-07 19:55] VITALS: BP 136/78
[2021-02-07] MEDS: FAMOTIDINE 20MG VIAL IV SCH (20:09)
[2021-02-07] MEDS: ENOXAPARIN SODIUM 40 MG/0.4 ML SYRINGE SQ SCH (20:10)
[2021-02-07 23:15] VITALS: BP 102/56
[2021-02-08 03:43] VITALS: BP 105/59
[2021-02-08 08:00] VITALS: BP 105/41
[2021-02-08] MEDS: FAMOTIDINE 20MG VIAL IV SCH ×2 (11:26→20:31)
[2021-02-08] MEDS: HYDROMORPHONE 1 MG INJ IVP PRN ×2 (11:37→20:40)
[2021-02-08 12:00] VITALS: BP 152/83
[2021-02-08] MEDS: 0.9%NACL 1000ML 1,000 ML IV SCH ×2 (15:13→20:39)
[2021-02-08] MEDS ORDERED: HYDROMORPHONE 1 MG INJ IVP ONE (15:30)
[2021-02-08 16:00] VITALS: BP 133/76
[2021-02-08 20:00] VITALS: BP 155/87
[2021-02-08] MEDS ORDERED: MAGNESIUM CITRATE 296 ML SOLUTION PO ONE (20:00)
[2021-02-08] MEDS: CARVEDILOL 6.25 MG TABLET PO SCH (20:32)
[2021-02-08] MEDS: ENOXAPARIN SODIUM 40 MG/0.4 ML SYRINGE SQ SCH (20:32)
[2021-02-08 23:59] VITALS: BP 156/80
[2021-02-09] VITALS (14 sets, daily range): BP systolic 115–160; BP diastolic 64–87
[2021-02-09] MEDS: CARVEDILOL 6.25 MG TABLET PO SCH ×2 (09:03→21:30)
[2021-02-09] MEDS: LISINOPRIL 10 MG TABLET PO SCH (09:04)
[2021-02-09] MEDS: AMLODIPINE 5 MG TAB PO SCH (09:04)
[2021-02-09] MEDS: FAMOTIDINE 20MG VIAL IV SCH ×2 (09:04→21:30)
[2021-02-09 09:21] LABS: BASOPHILS % (AUTO) 0.5 % (0.0-5.0); EOSINOPHILS % (AUTO) 2.5 % (0.0-8.0); HEMATOCRIT 37.1 % (36-48); LYMPHOCYTES % (AUTO) 35.4 % (21.0-51.0); MEAN CORPUSCULAR HEMOGLOBIN 31.7 pg (27.0-33.0); MEAN CORPUSCULAR HGB CONC 32.3 g/dL (32.0-36.0); MEAN CORPUSCULAR VOLUME 98.1 fL (79-99); MONOCYTES % (AUTO) 5.2 % (3.0-13.0); NEUTROPHILS % (AUTO) 56.2 % (40.0-77.0); PLATELET COUNT (AUTO) 156 K/uL (130-400); RED BLOOD CELL COUNT(AUTO) 3.78 MIL/uL (4.00-5.50); WHITE BLOOD COUNT (AUTO) 6.1 K/uL (4.8-10.8)
[2021-02-09] MEDS: 0.9%NACL 1000ML 1,000 ML IV SCH ×2 (09:25→15:30)
[2021-02-09 09:30] LABS: HEMOGLOBIN A1C 5.4 % (4.0-6.0)
[2021-02-09 10:32] LABS: ERYTHROCYTE SEDIMENTATION RATE 40 MM/HR (0-30)
[2021-02-09] MEDS ORDERED: LIDOCAINE PF 100MG/5ML (2%) SYRINGE 5ML ONE (13:05)
[2021-02-09] MEDS ORDERED: PROPOFOL 10 MG/ML 20ML VIAL IV ONE (13:05)
[2021-02-09] MEDS ORDERED: GLYCOPYRROLATE 1 MG/5 ML SYRINGE ONE (13:05)
[2021-02-09] MEDS ORDERED: MIDAZOLAM HCL 1 MG/ML 2ML VIAL ONE (13:06)
[2021-02-09] MEDS ORDERED: LACTULOSE 20 GM/30 ML UDCUP PO SCH (14:42)
[2021-02-09] MEDS ORDERED: MAGNESIUM CITRATE 296 ML SOLUTION PO SCH (15:00)
[2021-02-09] MEDS ORDERED: PEG 3350/NA SULF,BICARB,CL/KCL 4000 ML SOLN PO SCH (16:00)
[2021-02-09] MEDS: ENOXAPARIN SODIUM 40 MG/0.4 ML SYRINGE SQ SCH (21:31)
[2021-02-09] MEDS: HYDROMORPHONE 1 MG INJ IVP PRN (22:02)
[2021-02-10] VITALS (15 sets, daily range): BP systolic 120–162; BP diastolic 63–90
[2021-02-10] MEDS ORDERED: LIDOCAINE HCL 2% JELLY 5 ML TP PRN
[2021-02-10] MEDS: 0.9%NACL 1000ML 1,000 ML IV SCH ×2 (01:49→23:44)
[2021-02-10 07:12] LABS: HEMATOCRIT 37.7 % (36-48); MEAN CORPUSCULAR HEMOGLOBIN 31.7 pg (27.0-33.0); MEAN CORPUSCULAR HGB CONC 31.8 g/dL (32.0-36.0); MEAN CORPUSCULAR VOLUME 99.5 fL (79-99); RED BLOOD CELL COUNT(AUTO) 3.79 MIL/uL (4.00-5.50); RED CELL DISTRIBUTION WIDTH 12.4 % (11.0-15.5)
[2021-02-10 07:21] LABS: ALBUMIN 3.1 g/dL (3.5-5.0); BILIRUBIN,TOTAL 0.3 mg/dL (0.2-1.0); CREATININE 0.9 mg/dL (0.5-1.5); POTASSIUM 4.4 mmol/L (3.5-5.1); TOTAL PROTEIN, SERUM 6.9 g/dL (6.0-8.3)
[2021-02-10] MEDS: LISINOPRIL 10 MG TABLET PO SCH (08:33)
[2021-02-10] MEDS: CARVEDILOL 6.25 MG TABLET PO SCH ×2 (08:35→21:29)
[2021-02-10] MEDS: FAMOTIDINE 20MG VIAL IV SCH ×2 (08:36→21:29)
[2021-02-10] MEDS: AMLODIPINE 5 MG TAB PO SCH (08:36)
[2021-02-10] MEDS ORDERED: PROPOFOL 10 MG/ML 20ML VIAL IV ONE ×2 (13:29)
[2021-02-10] MEDS: ZOSYN 3.375GM +NS 50ML IV SCH ×2 (17:12→23:43)
[2021-02-10] MEDS: HYDROCORTISONE 25 MG SUPPOSITORY PR SCH ×2 (17:12→21:50)
[2021-02-10] MEDS: HYDROMORPHONE 1 MG INJ IVP PRN ×2 (17:13→21:30)
[2021-02-10] MEDS ORDERED: ZOSYN 3.375GM+NS 50ML 3.38 GM in 0.9%NACL 50ML 50 ML IV SCH (21:00)
[2021-02-10] MEDS: ENOXAPARIN SODIUM 40 MG/0.4 ML SYRINGE SQ SCH (21:50)
[2021-02-11] VITALS: BP 148/83
[2021-02-11 04:00] VITALS: BP 143/91
[2021-02-11 08:45] VITALS: BP 148/76
[2021-02-11] MEDS: AMLODIPINE 5 MG TAB PO SCH (09:40)
[2021-02-11] MEDS: HYDROCORTISONE 25 MG SUPPOSITORY PR SCH ×2 (09:40→20:42)
[2021-02-11] MEDS: ZOSYN 3.375GM +NS 50ML IV SCH ×2 (09:41→17:41)
[2021-02-11] MEDS: FAMOTIDINE 20MG VIAL IV SCH ×2 (09:41→20:43)
[2021-02-11] MEDS: CARVEDILOL 6.25 MG TABLET PO SCH ×2 (09:41→20:43)
[2021-02-11] MEDS: 0.9%NACL 1000ML 1,000 ML IV SCH ×2 (09:42→17:41)
[2021-02-11] MEDS: LISINOPRIL 10 MG TABLET PO SCH (09:42)
[2021-02-11 10:55] VITALS: BP 164/84
[2021-02-11 17:00] VITALS: BP 173/96
[2021-02-11] MEDS: HYDROMORPHONE 1 MG INJ IVP PRN (18:57)
[2021-02-11] MEDS: ONDANSETRON 4MG INJ IVP PRN (18:58)
[2021-02-11 20:00] VITALS: BP 140/87
[2021-02-11] MEDS: ENOXAPARIN SODIUM 40 MG/0.4 ML SYRINGE SQ SCH (20:45)
[2021-02-11] MEDS ORDERED: LAMO200T PO (20:55)
[2021-02-11] MEDS ORDERED: VENL150C2 PO (20:55)
[2021-02-11] MEDS ORDERED: CLON0.5T PO (20:55)
[2021-02-11] MEDS ORDERED: MIRT45TA83 PO (20:55)
[2021-02-12] VITALS (7 sets, daily range): BP systolic 122–175; BP diastolic 70–88
[2021-02-12] MEDS: ZOSYN 3.375GM +NS 50ML IV SCH ×3 (01:54→20:48)
[2021-02-12] MEDS: 0.9%NACL 1000ML 1,000 ML IV SCH ×2 (03:08→20:51)
[2021-02-12 04:09] LABS: HEMATOCRIT 33.6 % (36-48); MEAN CORPUSCULAR HGB CONC 32.7 g/dL (32.0-36.0); MEAN CORPUSCULAR VOLUME 97.7 fL (79-99); PLATELET COUNT (AUTO) 140 K/uL (130-400); RED BLOOD CELL COUNT(AUTO) 3.44 MIL/uL (4.00-5.50); RED CELL DISTRIBUTION WIDTH 11.9 % (11.0-15.5); WHITE BLOOD COUNT (AUTO) 6.3 K/uL (4.8-10.8)
[2021-02-12 04:23] LABS: ALBUMIN 2.9 g/dL (3.5-5.0); BILIRUBIN,TOTAL 0.2 mg/dL (0.2-1.0); CREATININE 1.1 mg/dL (0.5-1.5); POTASSIUM 3.8 mmol/L (3.5-5.1); TOTAL PROTEIN, SERUM 6.5 g/dL (6.0-8.3)
[2021-02-12 04:54] LABS: EOSINOPHILS % (MANUAL) 5 % (1-6); LYMPHOCYTES % (MANUAL) 26 % (22-44); MAN.DIFF COMMENT-IMPRESSION MANUAL DIFFERENTIAL; MONOCYTES % (MANUAL) 3 % (2-9); SEGMENTED NEUTROPHILS % 66 % (40-70)
[2021-02-12 04:55] LABS: PLATELET MORPHOLOGY COMMENT SLIGHTLY DECREASED
[2021-02-12] MEDS: FAMOTIDINE 20MG VIAL IV SCH ×2 (11:59→20:48)
[2021-02-12] MEDS: LISINOPRIL 10 MG TABLET PO SCH (12:00)
[2021-02-12] MEDS: AMLODIPINE 5 MG TAB PO SCH (12:00)
[2021-02-12] MEDS: CARVEDILOL 6.25 MG TABLET PO SCH ×2 (12:00→20:49)
[2021-02-12] MEDS: HYDROCORTISONE 25 MG SUPPOSITORY PR SCH ×2 (12:01→20:49)
[2021-02-12] MEDS: HYDROMORPHONE 1 MG INJ IVP PRN ×2 (12:08→20:57)
[2021-02-12] MEDS: ONDANSETRON 4MG INJ IVP PRN (12:08)
[2021-02-12] MEDS: ENOXAPARIN SODIUM 40 MG/0.4 ML SYRINGE SQ SCH (20:51)
[2021-02-13] VITALS (23 sets, daily range): BP systolic 124–169; BP diastolic 69–87
[2021-02-13] MEDS: ZOSYN 3.375GM +NS 50ML IV SCH ×4 (04:46→17:00)
[2021-02-13] MEDS: LISINOPRIL 10 MG TABLET PO SCH (09:00)
[2021-02-13] MEDS: AMLODIPINE 5 MG TAB PO SCH (09:00)
[2021-02-13] MEDS: HYDROCORTISONE 25 MG SUPPOSITORY PR SCH ×2 (09:11→20:29)
[2021-02-13] MEDS: FAMOTIDINE 20MG VIAL IV SCH ×2 (09:11→20:29)
[2021-02-13] MEDS: CARVEDILOL 6.25 MG TABLET PO SCH ×2 (09:12→20:29)
[2021-02-13] MEDS ORDERED: LACTATED RINGERS 1000ML 1,000 ML IV ONE (13:24)
[2021-02-13] MEDS ORDERED: LIDOCAINE PF 100MG/5ML (2%) SYRINGE 5ML ONE (13:40)
[2021-02-13] MEDS ORDERED: ROCURONIUM 10MG/1ML SYR 10 MG/ML ML ONE (13:41)
[2021-02-13] MEDS ORDERED: PROPOFOL 10 MG/ML 20ML VIAL IV ONE (13:41)
[2021-02-13] MEDS ORDERED: FENTANYL CITRATE PF 50 MCG/1 ML 2ML VIAL ONE (13:41)
[2021-02-13] MEDS ORDERED: MIDAZOLAM HCL 1 MG/ML 2ML VIAL ONE (13:41)
[2021-02-13] MEDS ORDERED: ONDANSETRON 4MG INJ ONE (13:41)
[2021-02-13] MEDS ORDERED: CEFAZOLIN SODIUM 1 GM VIAL ONE (14:07)
[2021-02-13] MEDS ORDERED: NEOSTIGMINE 5MG/5ML SYR IV ONE (14:45)
[2021-02-13] MEDS ORDERED: GLYCOPYRROLATE 1 MG/5 ML SYRINGE ONE (14:45)
[2021-02-13] MEDS ORDERED: KETOROLAC 30MG VIAL (30MG/ML) ONE (14:46)
[2021-02-13] MEDS ORDERED: BUPIVACAINE/PF 0.25% 30ML VIAL IJ ONE (14:48)
[2021-02-13] MEDS ORDERED: LIDOCAINE HCL 1% 20 ML VIAL ONE (14:48)
[2021-02-13] MEDS ORDERED: BACITRACIN 28.4 GM OINT TP ONE (14:54)
[2021-02-13] MEDS ORDERED: MEPERIDINE-PF 25 MG/ML SYG ONE ×2 (15:14→15:26)
[2021-02-13] MEDS: HYDROMORPHONE 1 MG INJ IVP PRN (19:03)
[2021-02-13] MEDS: 0.9%NACL 1000ML 1,000 ML IV SCH ×2 (19:30→21:40)
[2021-02-13] MEDS: ENOXAPARIN SODIUM 40 MG/0.4 ML SYRINGE SQ SCH (20:29)
[2021-02-13] MEDS: OXYCODONE/ACETAMIN 5/325MG TAB PO PRN (20:37)
[2021-02-14] MEDS: ZOSYN 3.375GM +NS 50ML IV SCH ×2 (01:08→09:45)
[2021-02-14] MEDS: HYDROMORPHONE 1 MG INJ IVP PRN (01:08)
[2021-02-14] MEDS: OXYCODONE/ACETAMIN 5/325MG TAB PO PRN ×4 (02:15→15:13)
[2021-02-14 04:25] VITALS: BP 128/72
[2021-02-14] MEDS: 0.9%NACL 1000ML 1,000 ML IV SCH (05:30)
[2021-02-14 08:00] VITALS: BP_SYST 112; BP_SYST 131; BP_DIAS 72; BP_DIAS 84
[2021-02-14] MEDS: FAMOTIDINE 20MG VIAL IV SCH (09:45)
[2021-02-14] MEDS: CARVEDILOL 6.25 MG TABLET PO SCH (09:46)
[2021-02-14] MEDS: HYDROCORTISONE 25 MG SUPPOSITORY PR SCH (09:47)
[2021-02-14] MEDS: AMLODIPINE 5 MG TAB PO SCH (09:47)
[2021-02-14] MEDS: LISINOPRIL 10 MG TABLET PO SCH (09:47)
[2021-02-14 12:00] VITALS: BP 147/92
[2021-02-14 16:00] VITALS: BP 156/81
== END 2021-02-14 19:00 | disposition home or self-care (01) | DRG 355 ==
LOC: DAH 07:31 → INTOOBSV 07:32 → OBSVTOIN 07:32 → 3AH 07:32 → DAH 07:32
PROVIDERS: ADMIT Surgery; ATTEND Surgery
PROC: 0WQF0ZZ Repair Abdominal Wall, Open Approach (ICD-10-PCS; principal; 2021-02-09)
PROC: 0DB98ZX Excision of Duodenum, Via Natural or Artificial Opening Endoscopic, Diagnostic (ICD-10-PCS; 2021-02-09)
PROC: 0DB68ZX Excision of Stomach, Via Natural or Artificial Opening Endoscopic, Diagnostic (ICD-10-PCS; 2021-02-09)
PROC: 0DB38ZX Excision of Lower Esophagus, Via Natural or Artificial Opening Endoscopic, Diagnostic (ICD-10-PCS; 2021-02-09)
PROC: 0DBM8ZZ Excision of Descending Colon, Via Natural or Artificial Opening Endoscopic (ICD-10-PCS; 2021-02-10)
PROC: 0DBP8ZZ Excision of Rectum, Via Natural or Artificial Opening Endoscopic (ICD-10-PCS; 2021-02-10)
PROC: 0DBM8ZX Excision of Descending Colon, Via Natural or Artificial Opening Endoscopic, Diagnostic (ICD-10-PCS; 2021-02-10)
PROC: 0DBN8ZX Excision of Sigmoid Colon, Via Natural or Artificial Opening Endoscopic, Diagnostic (ICD-10-PCS; 2021-02-10)
PROC: 0DBP8ZX Excision of Rectum, Via Natural or Artificial Opening Endoscopic, Diagnostic (ICD-10-PCS; 2021-02-10)
DX: K42.9 Umbilical hernia without obstruction or gangrene (principal); K44.9 Diaphragmatic hernia without obstruction or gangrene; K21.00 Gastro-esophageal reflux disease with esophagitis, without bleeding; K29.00 Acute gastritis without bleeding; K29.80 Duodenitis without bleeding; K63.5 Polyp of colon; K62.1 Rectal polyp; I10 Essential (primary) hypertension; M10.9 Gout, unspecified; M06.9 Rheumatoid arthritis, unspecified; Z20.822 Contact with and (suspected) exposure to COVID-19; M81.0 Age-related osteoporosis without current pathological fracture; G89.29 Other chronic pain; F31.9 Bipolar disorder, unspecified; I25.10 Atherosclerotic heart disease of native coronary artery without angina pectoris; J44.9 Chronic obstructive pulmonary disease, unspecified; F17.210 Nicotine dependence, cigarettes, uncomplicated; E78.5 Hyperlipidemia, unspecified; F41.9 Anxiety disorder, unspecified; R63.4 Abnormal weight loss; K64.0 First degree hemorrhoids; K63.89 Other specified diseases of intestine; K59.00 Constipation, unspecified; K57.30 Diverticulosis of large intestine without perforation or abscess without bleeding; K76.0 Fatty (change of) liver, not elsewhere classified; E66.01 Morbid (severe) obesity due to excess calories; Z68.33 Body mass index [BMI] 33.0-33.9, adult; Z86.74 Personal history of sudden cardiac arrest; Z88.8 Allergy status to other drugs, medicaments and biological substances; Z82.3 Family history of stroke; Z82.5 Family history of asthma and other chronic lower respiratory diseases; Z80.0 Family history of malignant neoplasm of digestive organs; Z80.1 Family history of malignant neoplasm of trachea, bronchus and lung; Z83.3 Family history of diabetes mellitus; Z80.42 Family history of malignant neoplasm of prostate; Z82.49 Family history of ischemic heart disease and other diseases of the circulatory system
CPT/HCPCS: 36415; 43239; 45380; 74178; 76856; 78227; 80048; 80053; 81001; 83036; 84145; 84702; 84703; 85025; 85027; 85610; 85651; 85730; 86140; 86677; 87088; 87635; 88302; 88305; 88342; 93005; A4606; A9537; C9803; G0378; J0690; J1170; J1650; J1885; J2001; J2175; J2250; J2405; J2543; J2704; J2710; J3010; J3490; J7030; J7120; Q9963; Q9967

== ENCOUNTER 2021-02-28 11:00 | Emergency (ER) | payer OTHER ==
[~2021-02-28] VITALS: Ht 167.6 cm; Wt 90.7 kg
[~2021-02-28 11:00] MED LIST changes: +CLON0.5T PO; +LAMO200T PO; +MIRT45TA83 PO; +VENL150C2 PO
[2021-02-28] MEDS ORDERED: HYDROCODONE/ACETAMINOPHEN 5/325 MG TAB PO ONE (12:00)
[2021-02-28] MEDS ORDERED: ONDANSETRON 4MG TABLET PO ONE (12:00)
[2021-02-28 12:32] VITALS: BP 130/85
== END 2021-02-28 12:42 | disposition home or self-care (01) ==
LOC: EDH 11:00
DX: T81.31XA Disruption of external operation (surgical) wound, not elsewhere classified, initial encounter (principal); I10 Essential (primary) hypertension; J44.9 Chronic obstructive pulmonary disease, unspecified; M06.9 Rheumatoid arthritis, unspecified; M81.0 Age-related osteoporosis without current pathological fracture; Z79.899 Other long term (current) drug therapy; Z88.8 Allergy status to other drugs, medicaments and biological substances; Y83.8 Other surgical procedures as the cause of abnormal reaction of the patient, or of later complication, without mention of misadventure at the time of the procedure; Y92.89 Other specified places as the place of occurrence of the external cause
CPT/HCPCS: 99283; Q0162

== ENCOUNTER 2021-09-12 23:41 | Observation (INO) | payer OTHER ==
[~2021-09-12] VITALS: Ht 167.6 cm; Wt 99.8 kg
[~2021-09-12 23:41] MED LIST changes: -VENL150C2 PO; +VENL150C4 PO
[2021-09-13] MEDS ORDERED: ONDANSETRON 4MG INJ ONE ×3 (00:30→14:23)
[2021-09-13 00:40] LABS: CREATININE 1.1 mg/dL (0.5-1.5)
[2021-09-13 00:45] LABS: ALBUMIN 3.3 g/dL (3.5-5.0); BILIRUBIN,TOTAL 0.2 mg/dL (0.2-1.0); TOTAL PROTEIN, SERUM 7.5 g/dL (6.0-8.3)
[2021-09-13 00:56] LABS: BASOPHILS % (AUTO) 0.6 % (0.0-5.0); EOSINOPHILS % (AUTO) 2.1 % (0.0-8.0); HEMATOCRIT 39.2 % (36-48); MEAN CORPUSCULAR HEMOGLOBIN 30.2 pg (27.0-33.0); MEAN CORPUSCULAR HGB CONC 31.6 g/dL (32.0-36.0); MEAN CORPUSCULAR VOLUME 95.6 fL (79-99); MONOCYTES % (AUTO) 6.2 % (3.0-13.0); NEUTROPHILS % (AUTO) 55.7 % (40.0-77.0); PLATELET COUNT (AUTO) 170 K/uL (130-400); RED CELL DISTRIBUTION WIDTH 12.3 % (11.0-15.5); WHITE BLOOD COUNT (AUTO) 8.5 K/uL (4.8-10.8)
[2021-09-13 02:34] LABS: APPEARANCE,URINE Clear (CLEAR); BILIRUBIN,URINE Negative (NEGATIVE); COLOR,URINE Yellow (YELLOW); GLUCOSE, URINE (UA) Negative (NEGATIVE); KETONES,URINE Trace mg/dL (NEGATIVE); LEUKOCYTE ESTERASE ,URINE Negative (NEGATIVE); NITRATE,URINE Negative (NEGATIVE); OCCULT BLOOD,URINE Negative (NEGATIVE); PROTEIN,URINE Negative (NEGATIVE)
[2021-09-13 02:42] LABS: AMPHET/METH SCREEN,URINE NEGATIVE (NEGATIVE); BARBITURATE SCREEN, URINE NEGATIVE (NEGATIVE); BENZODIAZEPINES SCREEN,URINE NEGATIVE (NEGATIVE); CANNABINOID SCREEN,URINE NEGATIVE (NEGATIVE); COCAINE SCREEN,URINE NEGATIVE (NEGATIVE); OPIATE SCREEN,URINE NEGATIVE (NEGATIVE); PHENCYCLIDINE SCREEN,URINE NEGATIVE (NEGATIVE)
[2021-09-13] MEDS ORDERED: NITROGLYCERIN 1GM OINT 1 INCH/1GM TD ONE (03:00)
[2021-09-13] MEDS ORDERED: MORPHINE 2 MG SYG ONE (03:08)
[2021-09-13] MEDS ORDERED: ACETAMINOPHEN 650 MG SUPPOSITORY RC PRN (03:30)
[2021-09-13] MEDS ORDERED: ACETAMINOPHEN 325 MG TAB PO PRN (03:30)
[2021-09-13] MEDS ORDERED: ONDANSETRON 4MG INJ IVP ONE (03:30)
[2021-09-13] MEDS ORDERED: HYDROCODONE/ACETAMINOPHEN 5/325 MG TAB PO PRN (03:30)
[2021-09-13] MEDS ORDERED: ALBUTEROL 0.083% 2.5 MG/3 ML INH IH PRN (03:30)
[2021-09-13] MEDS ORDERED: MORPHINE 2 MG SYG IVP ONE (03:30)
[2021-09-13] MEDS ORDERED: PANTOPRAZOLE 40 MG TAB DR PO SCH (09:00)
[2021-09-13] MEDS ORDERED: ENOXAPARIN SODIUM 40 MG/0.4 ML SYRINGE SQ SCH (09:00)
[2021-09-13] MEDS ORDERED: POLYETHYLENE GLYCOL 3350 17 GM POWD.PACK PO SCH (09:00)
[2021-09-13] MEDS ORDERED: ASPIRIN 325MG TAB PO ONE (09:30)
[2021-09-13] MEDS ORDERED: NITROGLYCERIN 0.4 MG SL TAB SL PRN (09:30)
[2021-09-13] MEDS ORDERED: CLONIDINE HCL 0.1 MG TABLET PO PRN (09:30)
[2021-09-13] MEDS: METOCLOPRAMIDE 5 MG TABLET PO SCH ×2 (10:11→11:30)
[2021-09-13] MEDS: IPRATROPIUM/ALBUTEROL SULFATE 3 ML SOLUTION IH SCH ×2 (12:07→18:55)
[2021-09-13] MEDS ORDERED: IOHEXOL-350 75 ML VIAL IV ONE (13:13)
[2021-09-13] MEDS ORDERED: DIATR MEGLU/DIATRIZOATE SODIUM 30 ML BOTTLE ONE (13:15)
[2021-09-13] MEDS ORDERED: ONDANSETRON 4MG INJ IVP PRN (14:30)
[2021-09-13] MEDS ORDERED: IOHEXOL 350 MG/ML 100ML INFUS..BTL IV ONE (16:54)
[2021-09-13 19:04] VITALS: BP 111/69
[2021-09-13] MEDS ORDERED: CLONAZEPAM 0.5 MG TABLET PO SCH (21:00)
[2021-09-13] MEDS ORDERED: CARVEDILOL 6.25 MG TABLET PO SCH (21:00)
[2021-09-13] MEDS ORDERED: MIRTAZAPINE 15 MG TABLET PO SCH (21:00)
[2021-09-14] MEDS ORDERED: AMLODIPINE 5 MG TAB PO SCH (09:00)
[2021-09-14] MEDS ORDERED: LISINOPRIL 10 MG TABLET PO SCH (09:00)
[2021-09-14] MEDS ORDERED: VENLAFAXINE HCL XR 37.5 MG CAP PO SCH (09:00)
[2021-09-14] MEDS ORDERED: ASPIRIN 325MG TAB PO SCH (09:00)
[2021-09-14] MEDS ORDERED: LAMOTRIGINE 100 MG TABLET PO SCH (09:00)
== END 2021-09-13 19:26 | disposition home or self-care (01) ==
LOC: EDH 23:41 → EDHIP 23:42 → UNDOADMOB 09-13 03:13 → EDHIP 09-13 19:26 → UNDODISOB 09-13 19:26
PROVIDERS: ADMIT Internal Medicine Pulmonary Disease; ATTEND Internal Medicine Pulmonary Disease
DX: R07.89 Other chest pain (principal); R06.02 Shortness of breath; I10 Essential (primary) hypertension; F31.9 Bipolar disorder, unspecified; F41.9 Anxiety disorder, unspecified; M10.9 Gout, unspecified; M06.9 Rheumatoid arthritis, unspecified; M81.0 Age-related osteoporosis without current pathological fracture; J44.9 Chronic obstructive pulmonary disease, unspecified; F17.200 Nicotine dependence, unspecified, uncomplicated; E66.9 Obesity, unspecified; G89.29 Other chronic pain; I25.10 Atherosclerotic heart disease of native coronary artery without angina pectoris; K46.9 Unspecified abdominal hernia without obstruction or gangrene; K59.00 Constipation, unspecified; Z79.899 Other long term (current) drug therapy
CPT/HCPCS: 36415; 71045; 71275; 74178; 80053; 80305; 81003; 84484 ×3; 85025; 85378; 93005 ×2; 94640 ×2; 94664; 96372; 96374; 96375; 96376; 99285; G0378 ×20; J1650; J2405 ×3; Q9963; Q9967 ×2

== ENCOUNTER 2021-12-06 15:39 | Emergency (ER) | payer OTHER ==
[~2021-12-06] VITALS: Ht 162.6 cm; Wt 99.8 kg
[2021-12-06 17:27] LABS: BASOPHILS % (AUTO) 0.5 % (0.0-5.0); EOSINOPHILS % (AUTO) 1.9 % (0.0-8.0); HEMATOCRIT 40.5 % (36-48); LYMPHOCYTES % (AUTO) 31.5 % (21.0-51.0); MEAN CORPUSCULAR HGB CONC 33.3 g/dL (32.0-36.0); MEAN CORPUSCULAR VOLUME 93.1 fL (79-99); MONOCYTES % (AUTO) 7.7 % (3.0-13.0); NEUTROPHILS % (AUTO) 58.1 % (40.0-77.0); PLATELET COUNT (AUTO) 165 K/uL (130-400); RED BLOOD CELL COUNT(AUTO) 4.35 MIL/uL (4.00-5.50); RED CELL DISTRIBUTION WIDTH 12.4 % (11.0-15.5); WHITE BLOOD COUNT (AUTO) 7.8 K/uL (4.8-10.8)
[2021-12-06] MEDS ORDERED: 0.9%NACL 1000ML 1,000 ML IV ONE (17:30)
[2021-12-06] MEDS ORDERED: ONDANSETRON 4MG INJ IVP ONE (17:30)
[2021-12-06] MEDS ORDERED: MORPHINE 4 MG SYG IVP ONE (17:30)
[2021-12-06] MEDS ORDERED: KETOROLAC 15MG/ML VIAL (15MG/ML) IV ONE (17:30)
[2021-12-06 17:42] LABS: INR 1.02 (0.85-1.15); PROTHROMBIN TIME 11.1 SEC (9.6-11.6)
[2021-12-06 17:43] LABS: PARTIAL THROMBOPLASTIN TIME 30.3 SEC (26.3-35.5)
[2021-12-06 17:46] LABS: ALBUMIN 3.7 g/dL (3.5-5.0); CREATININE 1.2 mg/dL (0.5-1.5); POTASSIUM 3.5 mmol/L (3.5-5.1); TOTAL PROTEIN, SERUM 8.4 g/dL (6.0-8.3)
[2021-12-06] MEDS ORDERED: IOHEXOL 350 MG/ML 100ML INFUS..BTL IV ONE (18:05)
[2021-12-06 18:48] LABS: APPEARANCE,URINE SL CLOUDY (CLEAR); BILIRUBIN,URINE MODERATE (NEGATIVE); COLOR,URINE ORANGE (YELLOW); GLUCOSE, URINE (UA) NEGATIVE (NEGATIVE); KETONES,URINE 5 mg/dL (NEGATIVE); LEUKOCYTE ESTERASE ,URINE NEGATIVE (NEGATIVE); NITRATE,URINE POSITIVE (NEGATIVE); OCCULT BLOOD,URINE NEGATIVE (NEGATIVE); PH,URINE 5.5 (5.0-8.0); PROTEIN,URINE TRACE mg/dL (NEGATIVE)
[2021-12-06] MEDS ORDERED: MAG/ALUM/SIMETH 30 ML UDCUP PO ONE (19:00)
[2021-12-06] MEDS ORDERED: LIDOCAINE HCL 2% VISCOUS 15 ML UDCUP PO ONE (19:00)
[2021-12-06 19:03] LABS: BACTERIA,URINE Few /HPF (None Seen); MUCUS,URINE Moderate LPF (None Seen); RBC,URINE 0-1 /HPF (0-1); SQUAMOUS EPITHELIAL CELL,UR Few /HPF (0-2); WBC,URINE 0-1 /HPF (0-1)
[2021-12-06 19:19] VITALS: BP 135/72
== END 2021-12-06 19:46 | disposition home or self-care (01) ==
LOC: EDH 15:39
DX: K82.1 Hydrops of gallbladder (principal); I10 Essential (primary) hypertension; M06.9 Rheumatoid arthritis, unspecified; M81.0 Age-related osteoporosis without current pathological fracture; F17.200 Nicotine dependence, unspecified, uncomplicated; Z88.8 Allergy status to other drugs, medicaments and biological substances; Z79.899 Other long term (current) drug therapy
CPT/HCPCS: 99285; 74177; 96374; 76705; 96375; 96361; 84484; 80053; 83690; 85025; 85610; 85730; 87088; 81001; 36415; 93005; J7030; J2405; J2270; J1885; Q9967

== ENCOUNTER 2022-01-31 11:16 | Day surgery (SDC) | payer OTHER ==
[2022-01-29 15:26] LABS: BASOPHILS % (AUTO) 0.5 % (0.0-5.0); EOSINOPHILS % (AUTO) 1.6 % (0.0-8.0); HEMATOCRIT 39.6 % (36-48); LYMPHOCYTES % (AUTO) 29.3 % (21.0-51.0); MEAN CORPUSCULAR HEMOGLOBIN 30.2 pg (27.0-33.0); MEAN CORPUSCULAR HGB CONC 32.8 g/dL (32.0-36.0); MEAN CORPUSCULAR VOLUME 92.1 fL (79-99); MONOCYTES % (AUTO) 7.8 % (3.0-13.0); NEUTROPHILS % (AUTO) 60.5 % (40.0-77.0); PLATELET COUNT (AUTO) 147 K/uL (130-400); RED CELL DISTRIBUTION WIDTH 12.4 % (11.0-15.5); WHITE BLOOD COUNT (AUTO) 7.7 K/uL (4.8-10.8)
[2022-01-29 15:48] LABS: INR 0.97 (0.85-1.15); PROTHROMBIN TIME 10.6 SEC (9.6-11.6)
[2022-01-29 15:49] LABS: PARTIAL THROMBOPLASTIN TIME 27.1 SEC (26.3-35.5)
[2022-01-29 15:54] LABS: ALBUMIN 3.5 g/dL (3.5-5.0); POTASSIUM 3.6 mmol/L (3.5-5.1); TOTAL PROTEIN, SERUM 7.6 g/dL (6.0-8.3)
[2022-01-30 12:46] VITALS: BP 145/82
[~2022-01-31] VITALS: Ht 162.6 cm; Wt 98.0 kg
[2022-01-31] VITALS (20 sets, daily range): BP systolic 91–173; BP diastolic 53–93
[~2022-01-31 11:16] MED LIST changes: +0.9% NACL 500ML IV.SOLN 500 ML IV SCH; +HYOS0.124 SL; +LACTATED RINGERS 1000ML 1,000 ML IV ONE; +ONDA4TAB10 PO
[2022-01-31] MEDS: CEFAZOLIN SODIUM 1 GM VIAL IVP SCH ×2 (11:20→12:20)
[2022-01-31] MEDS ORDERED: SUCCINYLCHOLINE CHLORIDE 20 MG/ML 10 ML VIAL ONE (11:50)
[2022-01-31] MEDS ORDERED: LIDOCAINE PF 100MG/5ML (2%) SYRINGE 5ML ONE (11:50)
[2022-01-31] MEDS ORDERED: PROPOFOL 10 MG/ML 20ML VIAL IV ONE (11:50)
[2022-01-31] MEDS ORDERED: MIDAZOLAM HCL 1 MG/ML 2ML VIAL ONE (11:51)
[2022-01-31] MEDS ORDERED: ONDANSETRON 4MG INJ ONE ×2 (11:51→13:38)
[2022-01-31] MEDS ORDERED: ROCURONIUM 10MG/1ML SYR 10 MG/ML ML ONE (11:51)
[2022-01-31] MEDS ORDERED: DEXAMETHASONE SOD PHOSPHATE 10MG/ML 1ML VIAL ONE (11:51)
[2022-01-31] MEDS ORDERED: NEOSTIGMINE 5MG/5ML SYR IV ONE (11:51)
[2022-01-31] MEDS ORDERED: GLYCOPYRROLATE 1 MG/5 ML SYRINGE ONE (11:51)
[2022-01-31] MEDS ORDERED: FENTANYL CITRATE PF 50 MCG/1 ML 2ML VIAL ONE ×3 (11:52→14:01)
[2022-01-31] MEDS ORDERED: LISI40TA9 PO (12:18)
[2022-01-31] MEDS ORDERED: CARV25TA PO (12:18)
[2022-01-31] MEDS ORDERED: medrol pack PO (12:20)
[2022-01-31] MEDS ORDERED: linzess PO (12:20)
[2022-01-31] MEDS ORDERED: CLON0.5T4 PO (12:20)
[2022-01-31] MEDS ORDERED: BACL10TA PO (12:20)
[2022-01-31] MEDS ORDERED: BUPIVACAINE/PF 0.25% 30ML VIAL IJ ONE (12:34)
[2022-01-31] MEDS ORDERED: BUPIVACAINE/PF 0.5% 30ML VIAL ONE (12:35)
[2022-01-31] MEDS ORDERED: KETOROLAC 30MG VIAL (30MG/ML) ONE (13:38)
[2022-01-31] MEDS ORDERED: MEPERIDINE-PF 25 MG/ML SYG ONE ×2 (13:39→13:51)
== END 2022-01-31 15:40 | disposition home or self-care (01) ==
LOC: DAH 11:16
PROVIDERS: ATTEND Student in an Organized Health Care Education/Training Program
DX: K81.1 Chronic cholecystitis (principal); K82.8 Other specified diseases of gallbladder; K82.1 Hydrops of gallbladder; J44.9 Chronic obstructive pulmonary disease, unspecified; M06.9 Rheumatoid arthritis, unspecified; K21.9 Gastro-esophageal reflux disease without esophagitis; I10 Essential (primary) hypertension; F31.9 Bipolar disorder, unspecified; M10.9 Gout, unspecified; M81.0 Age-related osteoporosis without current pathological fracture; F41.9 Anxiety disorder, unspecified; F17.200 Nicotine dependence, unspecified, uncomplicated; Z98.890 Other specified postprocedural states; Z79.01 Long term (current) use of anticoagulants; Z79.899 Other long term (current) drug therapy; Z68.35 Body mass index [BMI] 35.0-35.9, adult
CPT/HCPCS: 80053; 84703; 85025; 85610; 85730; 87426; 36415; 71045; 93005; 47562; 81025; A4663; A6207; J7030; J7120; J3010 ×3; J0690; J3490 ×2; J1100; J2710; J0330; J2001; J2250; J2704; J2405 ×2; J1885; J2175 ×2; A6206; C1769 ×3; A4649 ×3; G0168; A4215; A4223; A4222; A4221; A4600; J7040

== ENCOUNTER 2022-02-12 12:56 | Emergency (ER) | payer OTHER ==
[~2022-02-12] VITALS: Ht 162.6 cm; Wt 97.5 kg
[~2022-02-12 12:56] MED LIST changes: -0.9% NACL 500ML IV.SOLN 500 ML IV SCH; +BACL10TA PO; +CARV25TA PO; -CARV6.25 PO; -CLON0.5T PO; +CLON0.5T4 PO; -HYOS0.124 SL; -LACTATED RINGERS 1000ML 1,000 ML IV ONE; -LISI10TA24 PO; +LISI40TA9 PO; -ONDA4TAB10 PO; +linzess PO; +medrol pack PO
[2022-02-12] MEDS ORDERED: LIDOCAINE HCL-MPF 2% 10ML AMP IJ ONE (14:12)
[2022-02-12 14:25] LABS: BASOPHILS % (AUTO) 0.5 % (0.0-5.0); EOSINOPHILS % (AUTO) 2.3 % (0.0-8.0); HEMATOCRIT 37.8 % (36-48); LYMPHOCYTES % (AUTO) 26.5 % (21.0-51.0); MEAN CORPUSCULAR HEMOGLOBIN 30.3 pg (27.0-33.0); MEAN CORPUSCULAR HGB CONC 33.1 g/dL (32.0-36.0); MEAN CORPUSCULAR VOLUME 91.5 fL (79-99); MONOCYTES % (AUTO) 6.1 % (3.0-13.0); NEUTROPHILS % (AUTO) 64.2 % (40.0-77.0); PLATELET COUNT (AUTO) 165 K/uL (130-400); RED BLOOD CELL COUNT(AUTO) 4.13 MIL/uL (4.00-5.50); WHITE BLOOD COUNT (AUTO) 12.6 K/uL (4.8-10.8)
[2022-02-12 14:28] VITALS: BP 154/87
[2022-02-12 14:34] LABS: CREATININE 1.2 mg/dL (0.5-1.5); POTASSIUM 3.8 mmol/L (3.5-5.1)
[2022-02-12 14:39] LABS: ALBUMIN 3.5 g/dL (3.5-5.0)
== END 2022-02-12 15:06 | disposition home or self-care (01) ==
LOC: EDH 12:56
DX: L02.214 Cutaneous abscess of groin (principal); M19.90 Unspecified osteoarthritis, unspecified site; J44.9 Chronic obstructive pulmonary disease, unspecified; I10 Essential (primary) hypertension; G62.9 Polyneuropathy, unspecified; Z87.442 Personal history of urinary calculi; Z98.890 Other specified postprocedural states; Z79.899 Other long term (current) drug therapy; Z88.8 Allergy status to other drugs, medicaments and biological substances
CPT/HCPCS: 99283; 10060; 80053; 85025; 36415; J3490

== ENCOUNTER 2022-08-06 17:31 | Emergency (ER) | payer OTHER ==
[~2022-08-06] VITALS: Ht 162.6 cm; Wt 88.9 kg
[2022-08-06 19:01] LABS: APPEARANCE,URINE CLOUDY (CLEAR); BILIRUBIN,URINE NEGATIVE (NEGATIVE); COLOR,URINE YELLOW (YELLOW); GLUCOSE, URINE (UA) NEGATIVE (NEGATIVE); KETONES,URINE 5 mg/dL (NEGATIVE); LEUKOCYTE ESTERASE ,URINE NEGATIVE Leu/uL (NEGATIVE); NITRATE,URINE NEGATIVE (NEGATIVE); OCCULT BLOOD,URINE NEGATIVE (NEGATIVE); PROTEIN,URINE 30 mg/dL (NEGATIVE); UROBILINOGEN,URINE 6 mg/dL (0.2-1.0)
[2022-08-06 19:21] LABS: BACTERIA,URINE RARE /HPF (None Seen); MUCUS,URINE MANY LPF (None Seen); SQUAMOUS EPITHELIAL CELL,UR FEW /HPF (0-2); YEAST,URINE BUDDING FEW /HPF (None Seen)
[2022-08-06] MEDS ORDERED: MORPHINE 4 MG SYG IVP ONE (20:00)
[2022-08-06] MEDS ORDERED: PANTOPRAZOLE 40 MG/VIAL IVP ONE (20:00)
[2022-08-06] MEDS ORDERED: 0.9%NACL 1000ML 1,000 ML IV ONE (20:00)
[2022-08-06] MEDS ORDERED: ONDANSETRON 4MG INJ IVP ONE (20:00)
[2022-08-06] MEDS ORDERED: DICYCLOMINE 20MG (10MG/ML) AMP IM ONE (20:00)
[2022-08-06 20:01] VITALS: BP 135/90
[2022-08-06 20:16] LABS: BASOPHILS % (AUTO) 0.6 % (0.0-5.0); EOSINOPHILS % (AUTO) 1.9 % (0.0-8.0); HEMATOCRIT 40.2 % (36-48); LYMPHOCYTES % (AUTO) 33.9 % (21.0-51.0); MEAN CORPUSCULAR HEMOGLOBIN 29.4 pg (27.0-33.0); MEAN CORPUSCULAR HGB CONC 32.1 g/dL (32.0-36.0); MEAN CORPUSCULAR VOLUME 91.6 fL (79-99); MONOCYTES % (AUTO) 6.8 % (3.0-13.0); NEUTROPHILS % (AUTO) 56.7 % (40.0-77.0); PLATELET COUNT (AUTO) 172 K/uL (130-400); RED BLOOD CELL COUNT(AUTO) 4.39 MIL/uL (4.00-5.50); RED CELL DISTRIBUTION WIDTH 11.8 % (11.0-15.5); WHITE BLOOD COUNT (AUTO) 6.9 K/uL (4.8-10.8)
[2022-08-06 20:29] LABS: CARBON DIOXIDE 26 mmol/L (21-32); CHLORIDE 101 mmol/L (101-111); CREATININE 1.1 mg/dL (0.5-1.5); GLOMERULAR FILTR. RATE CALC 59 mL/min (>90); GLUCOSE,RANDOM 94 mg/dL (70-105); POTASSIUM 3.8 mmol/L (3.5-5.1); SODIUM SERUM 135 mmol/L (136-145); UREA NITROGEN, BLOOD 13 mg/dL (7-18)
[2022-08-06] MEDS ORDERED: ACETAMINOPHEN 500 MG TABLET PO ONE (20:30)
[2022-08-06 20:35] LABS: ALANINE AMINOTRANSFERASE 33 U/L (12-78); ALBUMIN 3.7 g/dL (3.5-5.0); ASPARTATE AMINOTRANSFERASE 34 U/L (10-37); TOTAL PROTEIN, SERUM 8.4 g/dL (6.0-8.3)
[2022-08-06 20:36] LABS: LIPASE < 50 U/L (114-286)
[2022-08-06] MEDS ORDERED: IOHEXOL 350 MG/ML 100ML INFUS..BTL IV ONE (20:54)
[2022-08-06] MEDS ORDERED: ONDA-104 PO (21:52)
[2022-08-06] MEDS ORDERED: DICY20TA2 PO (21:52)
[2022-08-06] MEDS ORDERED: AMOX-426 PO (21:52)
[2022-08-06] MEDS ORDERED: PANT40TA54 PO (21:52)
[2022-08-06] MEDS ORDERED: ACET-66 PO (21:52)
== END 2022-08-06 22:35 | disposition home or self-care (01) ==
LOC: EDH 17:31
DX: K52.9 Noninfective gastroenteritis and colitis, unspecified (principal); J01.90 Acute sinusitis, unspecified; J44.9 Chronic obstructive pulmonary disease, unspecified; I10 Essential (primary) hypertension; F17.290 Nicotine dependence, other tobacco product, uncomplicated; Z79.899 Other long term (current) drug therapy; Z88.8 Allergy status to other drugs, medicaments and biological substances; Z20.822 Contact with and (suspected) exposure to COVID-19
CPT/HCPCS: 99285; 74177; 96374; 71045; 96375; 87635; 96361; 84484; 80053; 83690; 85025; 87880; 87804 ×2; 81001; 81025; 36415; 93005; 96372; C9803; J7030; J2405; J2270; C9113; J0500; Q9967